=== PATIENT | female | born 1935 | race Hispanic/Latino ===

== ENCOUNTER → 2019-08-15 | Outpatient (CLI) | payer OTHER, MEDICARE | END | disposition home or self-care (01) | LOC: SHCH 14:17 | PROVIDERS: ATTEND Internal Medicine Cardiovascular Disease | DX: I87.2 Venous insufficiency (chronic) (peripheral) (principal); I85.01 Esophageal varices with bleeding | CPT/HCPCS: 93970 ==

== ENCOUNTER 2021-01-09 19:17 | Emergency (ER) | payer OTHER, MEDICARE ==
[~2021-01-09] VITALS: Ht 160 cm; Wt 64.4 kg
[2021-01-09 19:38] VITALS: BP 183/85
[2021-01-09 19:59] LABS: BASOPHILS % (AUTO) 0.2 % (0.0-5.0); EOSINOPHILS % (AUTO) 0.4 % (0.0-8.0); HEMATOCRIT 38.1 % (36-48); LYMPHOCYTES % (AUTO) 12.9 % (21.0-51.0); MEAN CORPUSCULAR HEMOGLOBIN 28.5 pg (27.0-33.0); MEAN CORPUSCULAR HGB CONC 33.9 g/dL (32.0-36.0); MEAN CORPUSCULAR VOLUME 84.1 fL (79-99); MONOCYTES % (AUTO) 7.2 % (3.0-13.0); NEUTROPHILS % (AUTO) 78.9 % (40.0-77.0); PLATELET COUNT (AUTO) 375 K/uL (130-400); RED BLOOD CELL COUNT(AUTO) 4.53 MIL/uL (4.00-5.50); RED CELL DISTRIBUTION WIDTH 13.8 % (11.0-15.5); WHITE BLOOD COUNT (AUTO) 9.8 K/uL (4.8-10.8)
[2021-01-09] MEDS ORDERED: 0.9%NACL 1000ML 1,000 ML IV ONE ×2 (20:00→21:00)
[2021-01-09 20:01] LABS: APPEARANCE,URINE Clear (CLEAR); BILIRUBIN,URINE Negative (NEGATIVE); COLOR,URINE Yellow (YELLOW); GLUCOSE, URINE (UA) Negative (NEGATIVE); KETONES,URINE Negative (NEGATIVE); LEUKOCYTE ESTERASE ,URINE Negative (NEGATIVE); NITRATE,URINE Negative (NEGATIVE); OCCULT BLOOD,URINE Negative (NEGATIVE); PH,URINE 6.5 (5.0-8.0); PROTEIN,URINE Negative (NEGATIVE); UROBILINOGEN,URINE 0.2 mg/dL (0.2-1.0)
[2021-01-09] MEDS ORDERED: MORPHINE 2 MG SYG ONE (20:01)
[2021-01-09] MEDS ORDERED: ONDANSETRON 4MG INJ ONE (20:01)
[2021-01-09 20:10] LABS: CREATININE 0.7 mg/dL (0.5-1.5)
[2021-01-09 20:14] LABS: ALBUMIN 3.7 g/dL (3.5-5.0); BILIRUBIN,TOTAL 0.2 mg/dL (0.2-1.0); TOTAL PROTEIN, SERUM 7.4 g/dL (6.0-8.3)
[2021-01-09] MEDS ORDERED: MORPHINE 2 MG SYG IVP ONE (21:00)
[2021-01-09] MEDS ORDERED: ONDANSETRON 4MG INJ IVP ONE (21:00)
== END 2021-01-09 21:41 | disposition home or self-care (01) ==
LOC: EDH 19:17
DX: K52.9 Noninfective gastroenteritis and colitis, unspecified (principal); Z79.899 Other long term (current) drug therapy
CPT/HCPCS: 36415; 71045; 80053; 81003; 83690; 84484; 85025; 93005; 96361; 96374; 96375; 99285; J2405; J7030

== ENCOUNTER → 2021-02-06 | Outpatient (CLI) | payer OTHER, MEDICARE ==
[~2021-02-06] MED LIST: 0.9%NACL 1000ML 1,000 ML IV ONE; ALPR0.25 PO; BISA10SU61 PO; FEXO1TAB5 PO; FLUT16H NASAL; MELA5CAP PO; OMEP40CA21 PO
== END | disposition home or self-care (01) ==
LOC: DAH 10:00 → EDSTATUS 02-10 07:20
PROVIDERS: ATTEND Internal Medicine Gastroenterology
DX: Z01.818 Encounter for other preprocedural examination (principal); R93.3 Abnormal findings on diagnostic imaging of other parts of digestive tract; Z20.822 Contact with and (suspected) exposure to COVID-19
CPT/HCPCS: 87635; C9803; J7030